=== PATIENT | female | born 1980 | race Caucasian/White ===

== ENCOUNTER → 2018-07-07 | Outpatient (CLI) | payer BC ==
[~2018-07-07] MED LIST: ACE3 PO; ACET-3143 GT; CITA-145 PO; CITA20SO PO; CLIN300C99 PO; Docusate Sodium PO; FLU60SYR36 IM; FLUO-176 PO; FLUO40CA67 PO; IBU800 GT; IBU800 PO; LEVO75TA73 PO; LEVO88TA45 PO; OMEP-137 PO; PANT40TA65 PO; PER PO; PHEN-580 PO; VALA100062 PO
== END ==
LOC: LAB 10:15
PROVIDERS: ATTEND Obstetrics & Gynecology
DX: Z11.8 Encounter for screening for other infectious and parasitic diseases (principal); Z11.3 Encounter for screening for infections with a predominantly sexual mode of transmission
CPT/HCPCS: 87491; 87591